=== PATIENT | male | born 1950 | race Caucasian/White ===

== ENCOUNTER 2020-06-07 07:15 | Day surgery (SDC) | payer MEDICARE, OTHER ==
[~2020-06-07] VITALS: Ht 170.2 cm; Wt 104.1 kg
[~2020-06-07 07:15] MED LIST: AMLODIPINE-BEN1 EACH PO; HYDACE5; METF500 PO; NAPR500; OMEP20ER; PRAV20 PO; RAMI5 PO; TAMS.4ER; VICTOZA 2-0.6 MG/0.1; [UNRECOGNIZED DRUG - CODE] PO
== END 2020-06-07 09:11 | disposition home or self-care (01) ==
LOC: ORSCSDS 07:15
PROVIDERS: Ophthalmology
PROC: 08RJ3JZ Replacement of Right Lens with Synthetic Substitute, Percutaneous Approach (ICD-10-PCS; principal; 2020-06-07 08:30)
DX: H25.11 Age-related nuclear cataract, right eye (principal); I10 Essential (primary) hypertension; E11.9 Type 2 diabetes mellitus without complications; K21.9 Gastro-esophageal reflux disease without esophagitis; Z87.891 Personal history of nicotine dependence; E66.01 Morbid (severe) obesity due to excess calories; Z68.36 Body mass index [BMI] 36.0-36.9, adult; Z79.84 Long term (current) use of oral hypoglycemic drugs; Z79.899 Other long term (current) drug therapy; Z79.82 Long term (current) use of aspirin
CPT/HCPCS: 82947; J2001; J2250; J3301; J7040; V2632

== ENCOUNTER 2022-02-13 09:00 | Day surgery (SDC) | payer MEDICARE ==
[~2022-02-13] VITALS: Ht 167.6 cm; Wt 105.9 kg
[2022-02-13] MEDS ORDERED: PIOG15 (10:02)
[2022-02-13] MEDS ORDERED: ACYC400 (10:02)
--- NOTE | 2022-02-13 10:17 | NUR ---
02/13/22 1017 Destiny Biswas TETRACAINE AT 0953 TO LEFT EYE BY ERIK GOMEZ PLEDGET AT 1955 INTO LEFT EYE BY ERIK GOMEZ
== END 2022-02-13 11:30 | disposition home or self-care (01) ==
LOC: ORSCSDS 09:00
PROVIDERS: Ophthalmology
PROC: 08RK3JZ Replacement of Left Lens with Synthetic Substitute, Percutaneous Approach (ICD-10-PCS; principal; 2022-02-13 10:30)
DX: H25.12 Age-related nuclear cataract, left eye (principal); Z96.1 Presence of intraocular lens; E11.9 Type 2 diabetes mellitus without complications; I10 Essential (primary) hypertension; K21.9 Gastro-esophageal reflux disease without esophagitis; Z79.82 Long term (current) use of aspirin; Z79.84 Long term (current) use of oral hypoglycemic drugs; Z79.899 Other long term (current) drug therapy; F17.210 Nicotine dependence, cigarettes, uncomplicated
CPT/HCPCS: 82947; J2001; J2250; J3010; J3301; J7040; V2632

== ENCOUNTER 2022-09-24 08:48 | Day surgery (SDC) | payer MEDICARE ==
[~2022-09-24] VITALS: Ht 170.2 cm; Wt 101.3 kg
[~2022-09-24 08:48] MED LIST changes: +ACYC400; +PIOG15
[2022-09-24 11:24] VITALS: BP 128/75
== END 2022-09-24 11:23 | disposition home or self-care (01) ==
LOC: ORSCSDS 08:48
PROVIDERS: Internal Medicine Gastroenterology
PROC: 0DBP8ZX Excision of Rectum, Via Natural or Artificial Opening Endoscopic, Diagnostic (ICD-10-PCS; principal; 2022-09-24 10:15)
PROC: 0DBN8ZX Excision of Sigmoid Colon, Via Natural or Artificial Opening Endoscopic, Diagnostic (ICD-10-PCS; principal; 2022-09-24 10:15)
DX: Z12.11 Encounter for screening for malignant neoplasm of colon (principal); D12.8 Benign neoplasm of rectum; K63.5 Polyp of colon; K57.30 Diverticulosis of large intestine without perforation or abscess without bleeding; Z86.010 Personal history of colon polyps; Z80.0 Family history of malignant neoplasm of digestive organs; Z85.46 Personal history of malignant neoplasm of prostate; I10 Essential (primary) hypertension; E11.9 Type 2 diabetes mellitus without complications; K21.9 Gastro-esophageal reflux disease without esophagitis; Z79.84 Long term (current) use of oral hypoglycemic drugs; Z79.899 Other long term (current) drug therapy; F17.200 Nicotine dependence, unspecified, uncomplicated
CPT/HCPCS: 82947; 88305; J2704; J7120

== ENCOUNTER 2022-12-31 10:57 | Inpatient (IN) | payer MEDICARE ==
[~2022-12-31] VITALS: Ht 170.2 cm; Wt 102.5 kg
[~2022-12-31 10:57] MED LIST changes: -ACYC800 PO; -ACYCLOVIR400 MG PO; -FURO40 PO; -Glucophage 850850 MG PO; -LASIX20 M2 PO; -LISI20 PO; -Metoprolol Succ25 MG PO; -OMEP20ER PO; -PIOG30 PO; -TRAM50 PO
[2022-12-31] MEDS ORDERED: TRAM50 PO (11:35)
[2022-12-31] MEDS ORDERED: ACYCLOVIR400 MG PO (11:35)
[2022-12-31] MEDS ORDERED: PRAV20 PO (14:44)
[2022-12-31] MEDS ORDERED: OMEP20ER PO (14:44)
[2022-12-31] MEDS ORDERED: PIOG30 PO (14:44)
[2022-12-31] MEDS ORDERED: Glucophage 850850 MG PO (14:45)
[2022-12-31] MEDS ORDERED: ACYC800 PO (14:46)
[2022-12-31 15:08] VITALS: BP 143/84
[2022-12-31 19:28] VITALS: BP 126/81
--- NOTE | 2023-01-01 03:57 | NUR ---
MANAGER OF INTERNATIONAL SUMMARY VSS. ALERT AND ORIENTED. UP AD SUSANNE. VOIDING QS. O2 AT 2L/MIN PER NC. LUNG SOUNDS SLIGHT DIMINISHED TO AUSCULTATION. ACCU CHECKS BELOW 200. HAS BEEN RESTING QUIETLY WITH FEW INTERRUPTIONS. DENIED PAIN WHEN ASKED. CALL LIGHT IN REACH. WILL CONTINUE TO MONITOR
[2023-01-01 04:08] VITALS: BP 120/82
[2023-01-01 05:24] LABS: BASOPHILS ABSOLUTE AUTO 0.03 K/mm3 (0.00-0.23); BASOPHILS PERCENT AUTO 1 % (0-2); EOSINOPHILS PERCENT AUTO 2 % (0-6); Hematocrit 36.1 % (37.0-53.0); Hemoglobin 12.6 g/dL (13.5-17.5); IMMATURE GRAN ABSOLUTE AUTO 0.03 K/mm3 (0.00-0.10); IMMATURE GRAN PERCENT AUTO 1 % (0-1); LYMPHOCYTES ABSOLUTE AUTO 1.35 K/mm3 (0.84-5.20); LYMPHOCYTES PERCENT AUTO 27 % (21-46); MONOCYTES ABSOLUTE AUTO 0.52 K/mm3 (0.16-1.47); MONOCYTES PERCENT AUTO 10 % (4-13); Mean Corpuscular HGB Conc 34.9 g/dL (31.5-36.5); Mean Corpuscular Volume 95 fL (80-100); NEUTROPHILS ABSOLUTE AUTO 2.96 K/mm3 (1.96-9.15); NEUTROPHILS PERCENT AUTO 59 % (41-73); Platelet Count 199 K/mm3 (150-400); RDW Coefficient Variation 13.4 % (11.7-14.2); RDW Standard Deviation 45.7 fL (35.1-46.3); Red Blood Cell Count 3.82 M/mm3 (4.30-5.90); White Blood Cell Count 4.99 K/mm3 (4.00-11.30)
[2023-01-01 05:57] LABS: Albumin, Blood 3.8 g/dL (3.4-5.0); Anion Gap 9 mmol/L (6-16); Blood Urea Nitrogen 20 mg/dL (8-24); Bun/Creatinine Ratio 19.2 (12.0-20.0); CO2, Blood 21 mmol/L (21-32); Calcium, Blood 9.5 mg/dL (8.5-10.1); Chloride, Blood 106 mmol/L (98-108); Creatinine, Blood 1.04 mg/dL (0.60-1.20); Glomerular Filtration Rate 75 (60-); Glucose, Blood 174 mg/dL (70-99); Magnesium, Blood 1.9 mg/dL (1.6-2.4); Phosphorus, Blood 4.3 mg/dL (2.5-4.9); Potassium, Blood 4.1 mmol/L (3.5-5.5); Sodium, Blood 136 mmol/L (136-145)
[2023-01-01 07:22] VITALS: BP 133/90
[2023-01-01 15:12] VITALS: BP 116/72
--- NOTE | 2023-01-01 17:52 | NUR ---
SHIFT SUMMARY A&O X 4, VSS. IS PLEASANT & COOPERATIVE WITH ALL CARE. IS INDEPENDENT IN THE ROOM FOR RESTROOM USE. PT DIURESING WELL, EDEMA HAS DECREASED, IS BREATHING EASIER. IS ON 2 L'S O2 WITH SATS >90%. APPETITE IS GOOD. MAKES NEEDS KNOWN, USES CALL LIGHT APPROPRIATELY. BED IS IN LOW POSITION. WILL LIKELY DC HOME TOMORROW.
[2023-01-01 19:29] VITALS: BP 127/82
--- NOTE | 2023-01-02 04:20 | NUR ---
SHIFT SUMMARY PT ADMIT FOR CHF EXACERBATION. PT AWAITING DC HOME IN AM. SLEEPING SOUNDLY THROUGHOUT NIGHT. NO COMPLAINTS OF PAIN OR SHORTNESS OF BREATH. BACK TO BASELINE ON ROOM AIR.
[2023-01-02 04:42] VITALS: BP 129/87
[2023-01-02 07:18] VITALS: BP 122/89
[2023-01-02] MEDS ORDERED: FURO40 PO (13:33)
[2023-01-02] MEDS ORDERED: LISI20 PO (13:33)
[2023-01-02] MEDS ORDERED: Metoprolol Succ25 MG PO (13:33)
[2023-01-02] MEDS ORDERED: LASIX20 M2 PO (13:34)
--- NOTE | 2023-01-02 14:58 | NUR ---
DC HOME WRITTEN & VERBAL DC INSTRUCTIONS GIVEN TO PT WITH PRESENT, BOTH VERBALIZED GOOD UNDERSTANDING. ALL CONCERNS & QUESTIONS ADDRESSED. PIV DC'D WITH CATH TIP INTACT, NO REDNESS OR SWELLING NOTED. NEW MED SCRIPTS FAXED TO [facility] PER PT REQUEST. PT W/C'D TO PV WITH ALL PERSONAL BELONGINGS BY ETHYLBENZENE CONVERTER HELPER & ACCOMPANIED BY .
== END 2023-01-02 14:57 | disposition home or self-care (01) | DRG 291 ==
LOC: ER 10:57 → MEDS 10:58
PROVIDERS: ADMIT Family Medicine
DX: I11.0 Hypertensive heart disease with heart failure (principal); I50.23 Acute on chronic systolic (congestive) heart failure; E11.9 Type 2 diabetes mellitus without complications; M19.90 Unspecified osteoarthritis, unspecified site; E66.9 Obesity, unspecified; Z79.84 Long term (current) use of oral hypoglycemic drugs; Z79.899 Other long term (current) drug therapy; Z98.890 Other specified postprocedural states; Z87.891 Personal history of nicotine dependence; Z68.36 Body mass index [BMI] 36.0-36.9, adult
CPT/HCPCS: 36415; 80069; 82947; 83735; 83880; 85025; 96374; 99285-25; A9270; C8929; J1644; J1940; Q9957

== ENCOUNTER → 2022-12-31 | Outpatient (CLI) | payer MEDICARE ==
[~2022-12-31] MED LIST changes: +ACYC800 PO; +ACYCLOVIR400 MG PO; +FURO40 PO; +Glucophage 850850 MG PO; +LASIX20 M2 PO; +LISI20 PO; +Metoprolol Succ25 MG PO; +OMEP20ER PO; +PIOG30 PO; +TRAM50 PO
[2022-12-31 09:55] LABS: BASOPHILS ABSOLUTE AUTO 0.03 K/mm3 (0.00-0.23); BASOPHILS PERCENT AUTO 1 % (0-2); EOSINOPHILS ABSOLUTE AUTO 0.06 K/mm3 (0.00-0.68); EOSINOPHILS PERCENT AUTO 1 % (0-6); Hematocrit 36.7 % (37.0-53.0); Hemoglobin 12.9 g/dL (13.5-17.5); IMMATURE GRAN ABSOLUTE AUTO 0.04 K/mm3 (0.00-0.10); IMMATURE GRAN PERCENT AUTO 1 % (0-1); LYMPHOCYTES ABSOLUTE AUTO 1.23 K/mm3 (0.84-5.20); LYMPHOCYTES PERCENT AUTO 19 % (21-46); MONOCYTES ABSOLUTE AUTO 0.51 K/mm3 (0.16-1.47); MONOCYTES PERCENT AUTO 8 % (4-13); Mean Corpuscular HGB 33.9 pg (26.0-34.0); Mean Corpuscular HGB Conc 35.1 g/dL (31.5-36.5); Mean Corpuscular Volume 97 fL (80-100); Mean Platelet Volume 11.9 fL (9.1-12.4); NEUTROPHILS ABSOLUTE AUTO 4.46 K/mm3 (1.96-9.15); NEUTROPHILS PERCENT AUTO 71 % (41-73); Platelet Count 193 K/mm3 (150-400); RDW Coefficient Variation 13.5 % (11.7-14.2); RDW Standard Deviation 48.1 fL (35.1-46.3); White Blood Cell Count 6.33 K/mm3 (4.00-11.30)
[2022-12-31 10:00] LABS: Bun/Creatinine Ratio 15.6 (12.0-20.0); Calcium, Blood 10.1 mg/dL (8.5-10.1); Creatinine, Blood 1.28 mg/dL (0.60-1.20); Potassium, Blood 4.6 mmol/L (3.5-5.5)
== END | disposition home or self-care (01) ==
LOC: LAB SHORT 09:48 → LAB 09:48
PROVIDERS: Physician Assistant Medical
DX: R07.89 Other chest pain (principal)
CPT/HCPCS: 80048; 83880; 84484; 85025

== ENCOUNTER → 2024-04-22 | Outpatient (CLI) | payer MEDICARE ==
[~2024-04-22] MED LIST changes: +ACYC800 PO; +ACYCLOVIR400 MG PO; +FURO40 PO; +Glucophage 850850 MG PO; +LASIX20 M2 PO; +LISI20 PO; +Metoprolol Succ25 MG PO; +OMEP20ER PO; +PIOG30 PO; +TRAM50 PO
[2024-04-22 12:48] LABS: Albumin, Blood 3.8 g/dL (3.4-5.0); Albumin/Globulin Ratio 0.9 (0.8-1.8); Bilirubin, Total 0.4 mg/dL (0.1-1.0); Bun/Creatinine Ratio 18.6 (12.0-20.0); Calcium, Blood 9.6 mg/dL (8.5-10.1); Creatinine, Blood 1.94 mg/dL (0.60-1.20); Globulin, Blood 4.2 g/dL (2.2-4.0); Potassium, Blood 4.4 mmol/L (3.5-5.5)
== END ==
LOC: LAB SHORT 12:34 → LAB 12:34
PROVIDERS: Family Medicine
DX: M79.672 Pain in left foot (principal); M19.079 Primary osteoarthritis, unspecified ankle and foot
CPT/HCPCS: 80053; 84550; 85651; 86140

== ENCOUNTER 2024-05-18 13:18 | Emergency (ER) | payer MEDICARE ==
[~2024-05-18] VITALS: Ht 167.6 cm; Wt 104.3 kg
[2024-05-18 13:31] VITALS: BP 114/94
[2024-05-18] MEDS ORDERED: Furosemide 10 MG/ML 4ML Vial IV ONE (18:20)
== END 2024-05-18 21:05 | disposition home or self-care (01) ==
LOC: ER 13:18
DX: I11.0 Hypertensive heart disease with heart failure (principal); I50.9 Heart failure, unspecified; M19.90 Unspecified osteoarthritis, unspecified site; E11.9 Type 2 diabetes mellitus without complications; Z79.84 Long term (current) use of oral hypoglycemic drugs; Z79.899 Other long term (current) drug therapy; R06.02 Shortness of breath
CPT/HCPCS: 71046; 80053; 83880; 84484; 85025; 85379; 93005; 93010; 96374; 99285-25; J1940

== ENCOUNTER → 2024-05-18 | Outpatient (CLI) | payer MEDICARE ==
[2024-05-18 12:23] LABS: BASOPHILS ABSOLUTE AUTO 0.04 K/mm3 (0.00-0.23); BASOPHILS PERCENT AUTO 1 % (0-2); EOSINOPHILS ABSOLUTE AUTO 0.06 K/mm3 (0.00-0.68); EOSINOPHILS PERCENT AUTO 1 % (0-6); Hematocrit 42.4 % (37.0-53.0); IMMATURE GRAN ABSOLUTE AUTO 0.03 K/mm3 (0.00-0.10); IMMATURE GRAN PERCENT AUTO 0 % (0-1); LYMPHOCYTES ABSOLUTE AUTO 1.76 K/mm3 (0.84-5.20); LYMPHOCYTES PERCENT AUTO 20 % (21-46); MONOCYTES ABSOLUTE AUTO 0.76 K/mm3 (0.16-1.47); MONOCYTES PERCENT AUTO 9 % (4-13); Mean Corpuscular Volume 88 fL (80-100); Mean Platelet Volume 12.7 fL (9.1-12.4); NEUTROPHILS ABSOLUTE AUTO 6.09 K/mm3 (1.96-9.15); NEUTROPHILS PERCENT AUTO 70 % (41-73); Platelet Count 206 K/mm3 (150-400); RDW Coefficient Variation 15.7 % (11.7-14.2); RDW Standard Deviation 50.2 fL (35.1-46.3); Red Blood Cell Count 4.82 M/mm3 (4.30-5.90); White Blood Cell Count 8.74 K/mm3 (4.00-11.30)
[2024-05-18 12:34] LABS: Albumin, Blood 4.2 g/dL (3.4-5.0); Albumin/Globulin Ratio 1.1 (0.8-1.8); Bun/Creatinine Ratio 16.9 (12.0-20.0); Creatinine, Blood 2.49 mg/dL (0.60-1.20); Potassium, Blood 5.8 mmol/L (3.5-5.5); Total Protein, Blood 8.2 g/dL (6.4-8.2)
== END | disposition home or self-care (01) ==
LOC: LAB 12:12 → LAB SHORT 12:12
PROVIDERS: Family Medicine
DX: R06.02 Shortness of breath (principal)
CPT/HCPCS: 80053; 83880; 84484; 85025; 85379